=== PATIENT | female | born 1980 | race Caucasian/White ===

== ENCOUNTER 2018-10-06 11:43 | Observation (INO) ==
--- NOTE | 2018-10-06 11:52 | History & Physical Report ---
Date of Encounter: 10/06/18 Time of Encounter: 11:51 24 Hour HP Update - Instructions Instructions: If the History and Physical is less than 30 days old and was completed prior to A.M. admission and or procedure and has NOT been updated on calendar day of procedure please complete this update prior to performing procedure. - Update Patient reports changes in Medical Condition: No Changes in examination, assessment, or condition: No Changes in Medication: No Surgery Remains Indicated: Yes Consent for Planned Operative Procedure(s) Verified: Yes - Pre-Operative Checklist Prophylactic Antibiotic Ordered: Yes Home Medications Include Beta Misty: No Is VTE Prophylaxis Indicated?: Yes
[2018-10-06] MEDS ORDERED: CeFAZolin Syr 2,000MG/20 ML 2,000 MG/20 ML SYRINGE IVPB ONE (12:02)
[2018-10-06] MEDS ORDERED: Ringers Solution, Lactated 1,000 ML IVC SCH (12:15)
--- NOTE | 2018-10-06 12:27 | Anesthesia Evaluation PreOp ---
Date of Encounter: 10/06/18 Time of Encounter: 12:32 - Past History Planned Operation: robotic possible open excision pelvic mass Cardiac History: Denies any Significant Hx Pulmonary History: Denies Any Significant HX SURGICAL PATHOLOGIST History: Denies Any Significant HX Other Medical History: Denies Any Significant HX Anesthesia History: No Prior Anesthetic Complications, Past Anesthesia (nasal sx, D&C, trish salpingectomy) : No Test: Negative Alcohol Use: occasionally Drug use: none Medications and Allergies Ibuprofen [Motrin] 600 mg PO Q6HR PRN #60 tab 08/18/18 [Rx] Multivitamin [One-Daily Multi-Vitamin] 1 tab PO DAILY 08/18/18 [History] Allergy/AdvReac Type Severity Reaction Status Date / Time nitrofurantoin Allergy Swelling Verified 08/18/18 14:10 [From Macrobid] of Lip/Tongue/Throat phenazopyridine Allergy Swelling Verified 08/18/18 14:10 [From Pyridium] of Lip/Tongue/Throat - Meds/Allergy Pre-op Review Medications Reviewed: Yes Allergies Reviewed: Yes Beta Blockers on Current Med List: No Anesthesia Results - Labs Laboratory Tests 10/02/18 10/02/18 12:28 12:28 Hgb 13.9 Serum , Qual Negative - Imaging EKG: report reviewed Anesthesia Exam Vital Signs/O2 Sat/Glucose, Most Recent Temp Pulse Resp BP Pulse Ox 98.4 F 84 18 152/97 100 10/06/18 12:01 10/06/18 12:01 10/06/18 12:01 10/06/18 12:01 10/06/18 12:01 Weight: 81 kg NPO (# of Hours): > 8 hr - HEENT Pupil (Motor): Pupils equal Mallampati: II Teeth: Normal Oral Opening: Greater than 3 - SURGICAL PATHOLOGIST LOC: Oriented SURGICAL PATHOLOGIST Motor: Normal RUE, Normal LUE, Normal RLE, Normal LLE, Normal Face SURGICAL PATHOLOGIST Sensory: Normal: RUE, LUE, RLE, LLE, Face - Cardiac Rhythm: Regular Murmur: None - Pulmonary Breath Sounds: bilateral Clear Respiratory Effort: Symmetrical Anesthesia Assess/Plan ASA Score: 1 Level of consciousness: Cooperative, Oriented Anesthetic Plan: General Monitoring Plan: Standard Monitors Recovery Plan: PACU
[2018-10-06] MEDS ORDERED: Famotidine 20 MG/2 ML VIAL IVP ONE (12:32)
[2018-10-06] MEDS ORDERED: *HR* Promethazine 25 MG/ML VIAL IVP PRN ×2 (12:32→17:03)
[2018-10-06] MEDS ORDERED: Ketorolac 15 MG/ML VIAL IVP ONE (12:32)
[2018-10-06] MEDS ORDERED: *HR* OxyCODONE Immed Rel 5 MG TABLET PO PRN (12:32)
[2018-10-06] MEDS ORDERED: *HR* HYDROmorphone (PF) 1 MG/ML SYRINGE IVP PRN (12:32)
[2018-10-06] MEDS ORDERED: Ondansetron 4 MG/2 ML VIAL IVP ONE (12:32)
[2018-10-06] MEDS ORDERED: Acetaminophen IV 1,000 MG/100 ML INFUS..BTL IVPB ONE (12:32)
[2018-10-06] MEDS ORDERED: *HR* Labetalol 20 MG/4 ML SYRINGE IVP PRN (12:32)
[2018-10-06] MEDS ORDERED: *HR* Succinylcholine 200 MG/10 ML VIAL IVP ONE (12:42)
[2018-10-06] MEDS ORDERED: Lidocaine -MPF 4% 5 ML AMPUL ONE (12:42)
[2018-10-06] MEDS ORDERED: *HR* Rocuronium Bromide 50 MG/5 ML VIAL ONE (12:42)
[2018-10-06] MEDS ORDERED: Lidocaine -MPF 2% 2 ML VIAL ONE (12:42)
[2018-10-06] MEDS ORDERED: *HR* FentaNYL (PF) 100 MCG/2 ML VIAL ONE (12:43)
[2018-10-06] MEDS ORDERED: *HR* Propofol 200 MG/20 ML VIAL IVP ONE (12:43)
[2018-10-06] MEDS ORDERED: *HR* Midazolam HCl 2 MG/2 ML VIAL ONE (12:43)
[2018-10-06] MEDS ORDERED: Neostigmine Methylsulfate 3 MG/3 ML SYRINGE ONE (14:40)
[2018-10-06] MEDS ORDERED: Dexamethasone 4 MG/ML VIAL ONE (14:40)
[2018-10-06] MEDS ORDERED: Ondansetron 4 MG/2 ML VIAL ONE (14:40)
--- NOTE | 2018-10-06 16:37 | Operative Note ---
Date of procedure: 10/06/18 Pre-op diagnosis: pelvic mass (right) Post-op diagnosis: same Procedure: Robotic excision pelvic mass Complications: none immediate Anesthesia: LIVIA, local Surgeon: Demetrice Case Was there an golf course assistant present: Yes Instrument And Control Technician: Azalea Campbell Estimated blood loss (cc): 20 Specimen: pelvic mass (right) Condition: stable Disposition: PACU Procedure in Detail: Patient was brought to the operating suite and placed supine on the operating table. Sign in was performed and everyone was in agreement. Anesthesia was induced and patient was endotracheally intubated by anesthesia without incident. The abdomen was prepped and draped in the usual sterile fashion after the bilateral arms tucked. Timeout was performed again everyone was in agreement. An incision left upper quadrant through the skin and the subcutaneous tissue with an 11 blade was done and a Veress needle was placed through this, water drop test confirmed placement. The abdomen was insufflated. The abdomen was entered with a 0 degree laparoscope on a 5 mm XL trocar in the area under entry was visualized and no apparent bowel injury or bleeding. The 8 mm robotic port was placed in the left lateral abdominal wall under direct visualization after first incising the skin with 11 blade. A left lower quadrant 8 mm robot ports placed after first incising the skin with an 11 blade and placed under direct visualization. The left upper quadrant 5 mm port was exchanged for an 8 mm port. Patient was placed in Trendelenburg left side down position. The right pelvic mass was visualized overlying the iliacs. The robot was brought over the patient's right abdomen and docked. The mass was ballotable and appeared to be potentially a hemangioma. The mass was excised off the sidewall in its entirety with gentle blunt dissection and heated scissors. There was some oozing over the right iliac vein, although it did not appear to be a venous injury. Surgicel was placed over the area and although appeared to stop the oozing once the Surgicel was removed began using again. A 5 mm hemoclip was placed on the site of oozing but failed to completely stop the bleeding. A 5 g Erica was utilized to help stop the oozing as well as Surgicel. After gentle pressure for 15 minutes or was no apparent oozing from beneath the Surgicel once pressure was removed. The abdomen was irrigated with sterile saline. The pelvic mass was removed from the abdominal cavity with a laparoscopic Endo Catch bag. Patient was then placed in supine position. All trocars were removed from the abdomen after the insufflation was evacuated. The skin at the three port sites was closed with a 4-0 monocryl running subcuticular stitch. Mastisol and steri- strips applied to incisions. Patient tolerated procedure well. She was awoken by anesthesia and extubated in the OR. She was taken to PACU in stable condition.
--- NOTE | 2018-10-06 17:02 | Anesthesia Evaluation Post Op ---
Date of Encounter: 10/06/18 Time of Encounter: 17:02 - Discharge PostOp Status: Transfer Patient to floor (Patient's vital signs have been reviewed. Patient is stable postoperatively and has adequately recovered from anesthesia. Patient is determined to have stable airway patency and respiratory function including respiratory rate and oxygen saturation. Patient has a stable heart rate, blood pressure and adequate hydration. Patients mental status is acceptable. Patients temperature is appropriate. Pain and nausea are adequately controlled.)
[2018-10-06] MEDS ORDERED: OXYCODONE Oral CONC 10 MG/0.5 ML ORAL.SYG SL PRN (17:03)
[2018-10-06] MEDS ORDERED: 0.9 % Sodium Chloride 1,000 ML IVC SCH (17:03)
[2018-10-06] MEDS ORDERED: Ondansetron 4 MG/2 ML VIAL IVP PRN (17:03)
[2018-10-06] MEDS: *HR* OxyCODONE/APAP 5/325 TABLET PO PRN (20:03)
[2018-10-07 04:33] LABS: Basophils % 0.1 %; Hematocrit 39.7 % (35.3-44.9); Hemoglobin 13.2 g/dL (11.5-15.4); Immature Granulocytes % 0.4 % (0-4); Lymphocytes # 1.1 K/mcL (0.6-4.6); Lymphocytes % 14.8 %; Mean Corpuscular HGB Conc 33.2 g/dL (31.6-35.5); Mean Corpuscular Hemoglobin 30.9 pg (28.0-33.3); Mean Platelet Volume 8.5 fL (9.4-12.4); Monocytes # 0.5 K/mcL (0.0-1.3); Monocytes % 7.4 %; Neutrophils # 5.7 K/mcL (1.6-8.9); Platelet Count 298 K/mcL (140-400); Red Blood Count 4.27 M/mcL (3.82-4.97); Red Cell Distribution Width 12.2 % (11.5-14.5); Segmented Neutrophils % 77.3 %
[2018-10-07 04:56] LABS: BUN/Creatinine Ratio 15 (6-26); Blood Urea Nitrogen 10 mg/dL (6-20); Calcium 8.9 mg/dL (8.6-10.3); Carbon Dioxide 25 mEq/L (23-29); Chloride 104 mEq/L (98-107); Glucose 118 mg/dL (70-105); Osmolality,Calculated 280 (280-300); Potassium 4.4 mEq/L (3.5-5.1); Sodium 135 mEq/L (136-145); eGFR For Non-African Americans > 60 (> 60)
[2018-10-07] MEDS: *HR* OxyCODONE/APAP 5/325 TABLET PO PRN ×2 (05:55→11:07)
[2018-10-07 06:52] VITALS: BP 115/75
--- NOTE | 2018-10-07 09:48 | Discharge Summary ---
Orders not resulted at time of discharge: Pending orders 10/06/18 16:28 Surgical Pathology [PTH] Routine Date of Encounter: 10/07/18 Time of Encounter: 10:10 - Discharge Diagnosis (1) Pelvic mass Priority: Primary Status: Acute Comments: Date of procedure: 10/06/18 Pre-op diagnosis: pelvic mass (right) Post-op diagnosis: same Procedure: Robotic excision pelvic mass Complications: none immediate Anesthesia: GETA, local Surgeon: Demetrice Case General Surgery Exam Initial Vital Signs Temp Pulse Resp BP Pulse Ox 98.4 F 84 18 152/97 100 10/06/18 12:01 10/06/18 12:01 10/06/18 12:01 10/06/18 12:01 10/06/18 12:01 Vital Signs Temp Pulse Resp BP Pulse Ox 10/07/18 06:48 98.0 F 74 16 115/75 97 10/07/18 04:46 98.4 F 72 14 123/79 97 10/06/18 23:59 98.7 F 84 14 130/79 97 10/06/18 20:00 97.8 F 76 15 131/87 96 10/06/18 18:50 97.7 F 82 16 148/84 97 10/06/18 17:50 98.2 F 74 16 152/86 98 10/06/18 17:30 98.4 F 77 16 147/85 97 10/06/18 17:00 97.5 F L 71 16 154/96 98 10/06/18 16:53 97.0 F L 90 16 145/97 99 10/06/18 16:43 92 12 152/94 100 10/06/18 16:33 88 18 132/86 98 10/06/18 16:23 97.6 F 98 16 141/78 97 10/06/18 12:01 98.4 F 84 18 152/97 100 Intake and Output 10/06/18 10/07/18 10/07/18 23:59 07:59 15:59 Intake Total 1100 / 1100 661 / 661 50 / 50 Output Total 20 / 20 Balance 1080 / 1080 661 / 661 50 / 50 Intake: IV Fluids 600 / 600 661 / 661 50 / 50 0.9 % Sodium Chloride 1,000 ML 661 / 661 50 / 50 @ 50 mls/hr IVC .Q20H RADHA Rx#: [id number] Oral 500 / 500 0 / 0 Output: Estimated Blood Loss Other: # Voids 1 1 Weight 83.4 kg Patient Weight 10/07/18 23:59 Weight 83.4 kg VITAL SIGNS: Reviewed. See [facility] GENERAL: In no apparent distress. HEENT: Normocephalic, atraumatic, pupils are equal and reactive, extraocular motions intact, oropharynx is pink and moist, there is no neck adenopathy or JVD noted. CHEST/RESPIRATORY: The thorax is free from signs of trauma. Lung sounds: clear to auscultation, normal respiratory effort CARDIAC: Regular rate and rhythm. Normal S1 and S2, without murmurs, gallops, or rubs. VASCULAR: No Edema. 2+ peripheral pulses. ABDOMEN: soft, expected postoperative tenderness, active bowel sounds. There is a small amount of ecchymosis in the left lower quadrant INCISION: Surgical incision is clean, dry, and intact. There are no signs of cellulitis or infection noted. MUSCULOSKELETAL: Good range of motion of all major joints. Extremities without clubbing, cyanosis or edema. NEUROLOGIC EXAM: Alert and oriented x 3. Speech normal. Follows commands. PSYCHIATRIC: Mood normal. SKIN: No rash or lesions. - Hospital Course Hospital course: Ms. Pradhan is a 37 year old female who presented on 10/06/2018 for an elective robotic excision of a pelvic mass. Pathology remains pending at this time. Her hospital course was uncomplicated. She is ambulating avoiding without difficulty, tolerating a diet without nausea or vomiting, vital signs are stable, and she is afebrile. We will begin discharge planning to home with a follow-up in the office in approximately 2 weeks. - Time Spent with Patient Total time spent providing and/or coordinating discharge services: - Discharge Medications Prescriptions: New Ondansetron ODT [Zofran ODT] 4 mg SL Q4HR PRN #15 tab.rapdis PRN Reason: Postsurgical nausea OxyCODONE/APAP 5/325 [Percocet 5/325 MG] 1 each PO Q6HR PRN 7 Days #28 tablet PRN Reason: Pain Docusate Sodium [Colace] 100 mg PO BID PRN #30 capsule PRN Reason: Constipation Ibuprofen [Ibu] 600 mg PO Q8H #30 tablet Continue Multivitamin [One-Daily Multi-Vitamin] 1 tab PO DAILY Home Medications: Multivitamin [One-Daily Multi-Vitamin] 1 tab PO DAILY 08/18/18 [History] Docusate Sodium [Colace] 100 mg PO BID PRN #30 capsule 10/07/18 [Rx] Ibuprofen [Ibu] 600 mg PO Q8H #30 tablet 10/07/18 [Rx] Ondansetron ODT [Zofran ODT] 4 mg SL Q4HR PRN #15 tab.rapdis 10/07/18 [Rx] OxyCODONE/APAP 5/325 [Percocet 5/325 MG] 1 each PO Q6HR PRN 7 Days #28 tablet 10/07/18 [Rx] Allergies/Adverse Reactions: Allergy/AdvReac Type Severity Reaction Status Date / Time nitrofurantoin Allergy Swelling Verified 08/18/18 14:10 [From Macrobid] of Lip/Tongue/Throat phenazopyridine Allergy Swelling Verified 08/18/18 14:10 [From Pyridium] of Lip/Tongue/Throat Date of admission: 10/06/18 23:29 Primary care physician: Cassandra Watts, Discharging clinician: Melanie Powell Anticipated date of discharge: 10/07/18 Labs on day of discharge: Labs from last 24 hours 10/07/18 10/07/18 04:10 04:10 WBC 7.3 RBC 4.27 Hgb 13.2 Hct 39.7 MCV 93.0 MCH 30.9 MCHC 33.2 RDW 12.2 Plt Count 298 MPV 8.5 L Immature Gran % 0.4 Seg Neutrophils % 77.3 Lymphocytes % 14.8 Monocytes % 7.4 Eosinophils % 0.0 Basophils % 0.1 Neutrophils # 5.7 Lymphocytes # 1.1 Monocytes # 0.5 Eosinophils # 0.0 Basophils # 0.0 Sodium 135 L Potassium 4.4 Chloride 104 Carbon Dioxide 25 BUN 10 Creatinine 0.67 Est GFR ( Amer) > 60 Est GFR (Non-Af Amer) > 60 BUN/Creatinine Ratio 15 Glucose 118 H Calculated Osmolality 280 Calcium 8.9 - Patient Status Disposition: Home, Self-Care Functional capacity at discharge: independent ambulation Overall status at discharge: patient is progressing back to baseline - Discharge Instructions Follow Up With: Cassandra Watts CNP [Primary Care Provider] - Demetrice Case MD [Partnered Physician] - 10/22/18 10:05 am Additional Instructions: General Surgical Discharge Instructions 1. No pushing, pulling, or lifting greater than 15 lbs for 2-4 weeks (depending upon procedure). 2. You may shower beginning today, but no tub baths, soaking, or swimming for 2 weeks. 3. You may resume driving when you are off narcotics and are safe to react in a car. 4. Take ibuprofen every 8 hours for discomfort. If this does not relieve discomfort, you may take the as needed Percocet. Take narcotics as directed. Do not take more narcotics then directed and do not share your narcotics with any other person. Do not drink alcohol while on narcotics. 5. Take stool softeners (Colace) or a water based laxative (Miralax) while taking narcotics. You may hold for loose stools. 6. Report any fevers greater than 100.5F, increase abdominal discomfort, drainage that looks like pus, increased redness or pain at the surgical site, or any vomiting. 7. Report any pain in the calves, shortness of breath, or rapid heartbeat. 8. Follow-up in the office as directed. 9. If you were prescribed antibiotics, do not stop them without talking to your provider. - Diet and Activity Activity: increase activity as tolerated Diet: advance to your usual diet
== END 2018-10-07 11:38 | disposition home or self-care (01) ==
LOC: SAMDAY 11:43 → 3ANU 11:43
PROVIDERS: ADMIT Surgery; ATTEND Surgery